=== PATIENT | female | born 1990 | race Caucasian/White ===

== ENCOUNTER 2020-05-21 09:05 | Inpatient (IN) | payer BC ==
[2020-05-21] VITALS (39 sets, daily range): BP systolic 93–164; BP diastolic 48–103; PULSE 59–129; TEMP 97.5–98.8
[~2020-05-21] VITALS: Ht 162.6 cm; Wt 78.6 kg
--- NOTE | 2020-05-21 09:15 | NUR ---
Pt arrives on unit ambulatory with spouse. States possible SROM at 0745 of tea colored fluid. Denies regular ctx, vaginal bleeding, and reports GFM. Changed into clean gown. EFM and toco applied. VSS. Amniotest positive. SVE /2. Admission asssesment completed. Consents signed. Pt updated on POC. Dr. Brown notified. Orders for admission. Bed locked in low position. Call light within reach. No questions or concerns at this time.
[2020-05-21] MEDS ORDERED: SYNTHROID0.05 MG/TA PO (09:23)
--- NOTE | 2020-05-21 10:30 | NUR ---
Dr. Brown at nurses station and reviews FHR and contraction pattern on monitor. 1035: Dr. Brown in room at bedside. Plan of care reviewed with patient. SVE by Dr. Brown , light yellow fluid noted on chux pad. Pericare provided and patient sitting up in bed. 1050: LR infusing while patient resting in bed. 1051: Covid swab collected and sent to lab.
--- NOTE | 2020-05-21 11:30 | NUR ---
IV to INT. Patient off monitor at 1130 after reactive FHR on monitor. Patient ambulating around room.
[2020-05-21 11:39] LABS: BASO % 0.2 % (0.0-2.0); EOS # 0.1 (0.0-0.7); EOS % 1.1 % (0-4.0); GRAN # 7.1 (1.4-6.5); GRAN % 71.6 % (42.2-75.2); HEMATOCRIT 42.4 % (37.0-47.0); HEMOGLOBIN 14.9 g/dl (12.5-16.0); LYMPH # 2.2 (1.2-3.4); LYMPH % 21.8 % (20.0-51.0); MEAN CELL VOLUME 94 fl (80.0-100.0); MEAN CORPUSCULAR HEMOGLOBIN 33 pg (27.0-31.0); MEAN CORPUSCULAR HGB CONC 35 g/dl (33.0-37.0); MEAN PLATELET VOLUME 10.5 fl (7.4-10.4); MONO # 0.5 (0.1-0.6); MONO % 4.9 % (1.7-9.3); PLATELET COUNT 235 K/mm3 (130-400); RED BLOOD COUNT 4.53 M/mm3 (4.10-5.30); REDCELL DISTRIBUTION WIDTH-CV 12.5 % (11.5-14.5)
--- NOTE | 2020-05-21 12:02 | NUR ---
Patient back to room after ambulating in halls. FHR and contraction monitors placed and adjusted while patient standing. Patient denies any painful contractions at this time but felt a cramp. 1223: Patient off monitors and ambulating in room.
--- NOTE | 2020-05-21 13:20 | NUR ---
Dr. Brown at bedside. SVE by Dr. Brown and no change noted from previous SVE. Plan of care discussed. Will continue with pitocin augmentation. Patient tearful but understanding.
--- NOTE | 2020-05-21 13:45 | NUR ---
Pitocin started at 1345
--- NOTE | 2020-05-21 16:30 | NUR ---
Patient sitting on birthing ball. During contractions patient leaning over onto bed and swaying hips back and forth. FHR not tracing well during contraction. FHR readjusted. 1655: Patient repositioned with assistance and kneeling on end of bed leaning over onto small ball. at patient side. FHR and toco monitors adjusted.
--- NOTE | 2020-05-21 18:30 | NUR ---
Report received from KONSTANTIN Barahona. Pt up in bathroom. Plan of care explained to pt and who verbalize their understanding. 1839: at nurses station and reviews FHR strip. notified on no accelerations since 1699. 1842: SVE per provider. Education on epidural provided to pt and pt requesting epidural at this time. LR bolus infusing. STARLA Arreola notified.
--- NOTE | 2020-05-21 19:00 | NUR ---
Recurrent audible decelerations noted down to 70bpm at lowest point. LR bolus already running. Oxygen applied at 10L via oxymask and pt repositioned to wedged left. 1909: Elba [facility]A at bedside for epidural placement. Procedure explained to pt and who verbalize their understanding. Questions answered. Pt sitting on EOB, pulse ox applied. Difficulty tracing FHR due to maternal position. EFM adjusted by this RN. 1919: Test dose administered by Elba CHA. See anesthesia records. 2004: Recurrent late decelerations noted SVE 6/100/0, Stat[place] inserted and pt repositioned to wedge left position. 2104: called for update on pt. See physican notification. 2109: SVE C/+2. Pushing with contractions explained to pt and who verblaize their understanding. Pt completes a practice push with this RN. Moves vertex well. 2116: called and updated on pts status. See physican notification. 2124: Staton removed and pt continues pushing with this RN. 2133: requested for delivery. 2144: at bedside for delivery. Pt prepped for delivery and repositioned into footplates. 2148: Pt pushes with one contraction with provider with spontaneous delivery of viable female infant by at this time. Pitocin stopped per protocol. NC X1 and thick meconium noted with delivery. Infant to mothers chest where dried and stimulated by nursery RN. Care of assumed by Bam PRYOR. Cord gases completed. 2200: Spontaneous delivery of placenta by . Pitocin restarted at 333mus/hr per protocol. Retained placenta products removed with Curette by provider. 2208: Hemabate given IM per orders. Fundal message completed by . Bleeding WNL. Straight Catherization completed per provider. Pericare provided, pads changed, pt repositioned in bed and ice pack applied. Plan of care and safety precautions explained to pt and who verbalize their understanding. See doctor dications and anesthesia records.
[2020-05-22] VITALS (7 sets, daily range): BP systolic 106–133; BP diastolic 69–87; PULSE 81–110; TEMP 97.9–99.5
[2020-05-22 08:02] LABS: BASO % 0.1 % (0.0-2.0); EOS % 0.1 % (0-4.0); GRAN # 17.4 (1.4-6.5); GRAN % 82.8 % (42.2-75.2); LYMPH # 2.2 (1.2-3.4); LYMPH % 10.6 % (20.0-51.0); MEAN CELL VOLUME 94 fl (80.0-100.0); MEAN CORPUSCULAR HGB CONC 35 g/dl (33.0-37.0); MEAN PLATELET VOLUME 10.1 fl (7.4-10.4); MONO # 1.2 (0.1-0.6); MONO % 5.9 % (1.7-9.3); PLATELET COUNT 208 K/mm3 (130-400); RED BLOOD COUNT 3.21 M/mm3 (4.10-5.30); REDCELL DISTRIBUTION WIDTH-CV 12.6 % (11.5-14.5)
[2020-05-22 08:06] LABS: HEMOGLOBIN 10.6 g/dl (12.5-16.0); MEAN CORPUSCULAR HEMOGLOBIN 33 pg (27.0-31.0)
[2020-05-22] MEDS ORDERED: IBU600 MG PO (08:44)
--- NOTE | 2020-05-22 09:31 | NUR ---
Initial visit; Parents thanked [employer] for offering congratulations and God's blessings for the of their daughter. [employer] thanked family for choosing [facility].
[2020-05-23 07:00] VITALS: BP 129/78; PULSE 104; TEMP 98.4
--- NOTE | 2020-05-23 07:00 | NUR ---
Rests in bed, alert. Request pain medication. Ibuprofen 600 mg given per request and as ordered. Denies any other need at this time.
== END 2020-05-23 15:40 | disposition home or self-care (01) | DRG 806 ==
LOC: LDR 09:05 → LDRO 09:05 → LDR 09:15 → LDRO 09:16 → LDR 09:17 → OB 05-22 02:37
PROVIDERS: ADMIT Obstetrics & Gynecology
PROC: 10E0XZZ Delivery of Products of Conception, External Approach (ICD-10-PCS; principal; 2020-05-21)
PROC: 10D17Z9 Manual Extraction of Products of Conception, Retained, Via Natural or Artificial Opening (ICD-10-PCS; 2020-05-21)
DX: O42.013 Preterm premature rupture of membranes, onset of labor within 24 hours of rupture, third trimester (principal); O72.2 Delayed and secondary postpartum hemorrhage; Z37.0 Single live birth; O99.284 Endocrine, nutritional and metabolic diseases complicating childbirth; Z3A.39 39 weeks gestation of pregnancy; O77.0 Labor and delivery complicated by meconium in amniotic fluid; E03.9 Hypothyroidism, unspecified
CPT/HCPCS: J2590; J7120

== ENCOUNTER 2021-12-29 04:43 | Inpatient (IN) | payer BC ==
[~2021-12-29] VITALS: Ht 162.6 cm; Wt 80.0 kg
[2021-12-29] VITALS (26 sets, daily range): BP systolic 100–148; BP diastolic 56–94; PULSE 72–99; TEMP 97.8–99.3
[~2021-12-29 04:43] MED LIST: IBU600 MG PO; SYNTHROID0.05 MG/TA PO
--- NOTE | 2021-12-29 04:55 | NUR ---
G2L1. 39.6. Ambulatory to LDR 5 with spouse. Pt personal gown on. EFM and TOCO explained and applied. Pt reports contractions now 7 mins apart. Reports some spotting right before she left the house. Denies leaking of fluids. Reports good movement. VS completed. 0505: SVE /-2. Plan of care explained. ice water given and lighted lowered. 0610: at nurses station and reviews FHR strip. 0615: called with updated SVE. Admit orders received.
--- NOTE | 2021-12-29 06:20 | NUR ---
0620Report from Mamadou Baker RN. This RN at bedside. IV startet to left FA. Routine labs obtained. IV to INT. Consent forms explained and signed. 0655Pt requesting epidural. Roger Ramires CRNA at nurses desk and notified. LR bolus infusing. 0710Roger Ramires [employer] to bedside for epidural placement. Pt to edge of bed. FHR tracing intermittently due to maternal position. RN remains at bedside. 0715Single shot by Roger Ramires CRNA. See anesthesia record. 0718Test dose by Roger Ramires CRNA. See anesthesia record. 0720Pt wedge left. EFM adjusted and tracing well. Plan of care and safety precautions reviewed. 0810Catheter placed. SVE /-1. 0815Dr. Goodpasture updated on pt. See physician notification. Plan of care reviewed with pt and spouse who verbalize understanding.
[2021-12-29] MEDS ORDERED: SYNTHROID0.3 MG PO (06:35)
[2021-12-29 07:04] LABS: BASO % 0.3 % (0.0-2.0); EOS # 0.1 K/mm3 (0.0-0.7); EOS % 0.5 % (0.0-4.0); GRAN # 8.4 K/mm3 (1.4-6.5); GRAN % 70.8 % (42.2-75.2); HEMATOCRIT 37.4 % (37.0-47.0); HEMOGLOBIN 13.3 g/dl (12.5-16.0); LYMPH # 2.5 K/mm3 (1.2-3.4); LYMPH % 20.8 % (20.0-51.0); MEAN CELL VOLUME 90 fl (80.0-100.0); MEAN CORPUSCULAR HEMOGLOBIN 32 pg (27-31); MEAN CORPUSCULAR HGB CONC 36 g/dl (33.0-37.0); MEAN PLATELET VOLUME 9.6 fl (7.4-10.4); MONO # 0.9 K/mm3 (0.1-0.6); MONO % 7.3 % (1.7-9.3); PLATELET COUNT 281 K/mm3 (130-400); RED BLOOD COUNT 4.15 M/mm3 (4.10-5.30); REDCELL DISTRIBUTION WIDTH-CV 12.6 % (11.5-14.5)
--- NOTE | 2021-12-29 09:01 | NUR ---
0901Monitor noted to not be tracing. RN to bedside. EFM monitor screen reports "error in tracing." 0902EFM turned off and turned on. EFM resumes tracing.
--- NOTE | 2021-12-29 09:23 | NUR ---
0923Dr. Goodpasture to bedside. AROM for moderate amount of meconium fluid. SVE per provider 9cm. Sarah care provided, pt wedge left. Plan of care discussed.
--- NOTE | 2021-12-29 09:44 | NUR ---
0944Pt reports increased rectal pressure. SVE C/+1. 0946Dr. Yongpasture on unit and updated. See physician notification. 0953Dr. Yongpasture to bedside for delivery. Pt to footplates and instructed on pushing with contractions. 0955Patient begins to push with contractions with provider and nursing staff to bedside. Strong maternal effort. Moves vertex well. 1000Spontaneous vaginal delivery of viable female . To mother's chest where dried and stimulated by nursery RN. Nares and mouth bulb suctioned. 1002Cord clamped x2 and cut by father of . Care of assumed by Woody Rodgers RN. 1004Spontaneous and intact delivery of placenta. Pitocin to 333ml/hr per protocol. Second degree laceration repaired by Dr. Villegas. Fundus firm, midline, lochia minimal. Sarah care provided, pads changed, and ice pack to perineum. Plan of care and safety precautions reviewed. See doctor dictation, anesthesia record and nurses notes. Pt resting with call light within reach.
--- NOTE | 2021-12-29 12:00 | NUR ---
1200Epidural catheter out. See flowsheet. Pt ambulatory to bathroom with SBA. Unable to void at this time. Sarah care provided, pads changed, ice pack to perineum. Ambulatory to nursery. 1210Pt ambulatory to 214. Oriented to room and plan of care. Encouraged to drink fluids and attempt void with 1-2 hours. Questions invited and answered. Denies further needs. Call light within reach.
[2021-12-30 02:50] VITALS: BP 110/78; PULSE 78; TEMP 98.1
[2021-12-30 07:30] VITALS: BP 128/78; PULSE 91; TEMP 98.3
[2021-12-30] MEDS ORDERED: IBU800 M1 PO (13:49)
== END 2021-12-30 14:45 | disposition home or self-care (01) | DRG 807 ==
LOC: LDRO 04:43 → OB 06:15 → LDR 06:15 → OB 12:00
PROVIDERS: Obstetrics & Gynecology; ADMIT Obstetrics & Gynecology
PROC: 10E0XZZ Delivery of Products of Conception, External Approach (ICD-10-PCS; principal; 2021-12-29)
PROC: 0KQM0ZZ Repair Perineum Muscle, Open Approach (ICD-10-PCS; 2021-12-29)
DX: O99.284 Endocrine, nutritional and metabolic diseases complicating childbirth (principal); Z37.0 Single live birth; E03.9 Hypothyroidism, unspecified; O99.62 Diseases of the digestive system complicating childbirth; K21.9 Gastro-esophageal reflux disease without esophagitis; O99.892 Other specified diseases and conditions complicating childbirth; N80.9 Endometriosis, unspecified; O70.1 Second degree perineal laceration during delivery; O77.0 Labor and delivery complicated by meconium in amniotic fluid; Z3A.39 39 weeks gestation of pregnancy
CPT/HCPCS: J2590; J2795; J7120